=== PATIENT | female | born 1995 | race Caucasian/White ===

== ENCOUNTER 2016-06-22 21:04 | Emergency (ER) | payer MEDICAID ==
[~2016-06-22] VITALS: Ht 157.5 cm; Wt 55.5 kg
[2016-06-22 21:57] VITALS: Ht 157.5 cm; Wt 55.5 kg
--- NOTE | 2016-06-22 23:00 | ERD ---
ER Documentation Chief Complaint Date/Time DATE: 06/22/16 TIME: 22:57 Chief Complaint Flank pain right. pelvic pain and blood in the urine today HPI 21-year-old female presents here in emergency department for complaints of right flank pain radiating to the right pelvic area and hematuria started today. Patient has family history of kidney stones, is worried about this. Patient denies any dysuria. Patient denies any fever or chills. Patient denies any blood in the stool or black stool. Patient described the pain is sharp pain , radiating traveling from the right flank to the right pelvic area, at this time, 4/10 scale, patient denies any trauma on affected area. Patient denies any vaginal discharge or vagina itching. ROS All systems reviewed and are negative except as per history of present illness. Medications Home Meds Reported Medications [none] Unknown Strength No Conflict Check 06/22/16 Allergies Allergies: Coded Allergies: No Known Allergy (Unverified , 06/22/16) PMhx/Soc Medical and Surgical Hx: pt denies Medical Hx History of Surgery: Yes (appendectomy) Hx Alcohol Use: No Hx Substance Use: No Hx Tobacco Use: No Smoking Status: Never smoker FmHx Family History: No coronary disease, No diabetes, No other Physical Exam Vitals Vital Signs Date Time Temp Pulse Resp B/P Pulse Ox O2 Delivery O2 Flow Rate FiO2 06/22/16 21:57 99.3 84 18 115/76 98 Physical Exam GENERAL: The patient is well developed and appropriate for usual state of health, in no apparent distress. CHEST: Clear to auscultation bilaterally. There are no rales, wheezes or rhonchi. HEART: Regular rate and rhythm. No murmurs, clicks, rubs or gallops. No S3 or S4. ABDOMEN: Soft, nontender and nondistended. Good bowel sounds. No rebound or guarding. No gross peritonitis. No gross organomegaly or masses. No Garcia sign or McBurney point tenderness. BACK: No midline or flank tenderness. No CVA tenderness noted. EXTREMITIES: Equal pulses bilaterally. There is no peripheral clubbing, cyanosis or edema. No focal swelling or erythema. Full range of motion. Grossly neurovascularly intact. NEURO: Alert and oriented. Cranial nerves 2-12 intact. Motor strength in all 4 extremities with 5/5 strength. Sensation grossly intact. Normal speech and gait. SKIN: There is no apparent rash or petechia. The skin is warm and dry. HEMATOLOGIC AND LYMPHATIC: There is no evidence of excessive bruising or lymphedema. No gross cervical, axillary, or inguinal lymphadenopathy. Results 24 hrs Laboratory Tests Test 06/22/16 23:19 Bedside Urine Blood 2+ Bedside Urine Glucose (UA) Negative Bedside Urine Ketones (LAB) Negative Bedside Urine Leukocyte Esterase (L Negative Bedside Urine Nitrite (LAB) Negative Bedside Urine Protein (LAB) Negative Bedside Urine pH (LAB) 7.0 PROCEDURE: CT abdomen and pelvis without intravenous contrast. CLINICAL INDICATION: Right flank pain and hematuria. TECHNIQUE: CT of the abdomen/pelvis was performed utilizing axial images with reconstructions in sagittal and coronal planes. The administered radiation dose is CTDI 17 mGy, DLP 945 mGy-cm. COMPARISON: No pertinent prior examinations were submitted for comparison. FINDINGS: Visualized Chest: The visualized lung bases are clear. Abdomen: The liver, spleen, pancreas, gallbladder,and adrenal glands are unremarkable. The kidneys are without hydronephrosis. No definite urinary calculi are seen. There is no evidence of bowel obstruction. Prior appendectomy is noted. No intra-abdominal free air is seen. There is no evidence of intra-abdominal adenopathy or free fluid. Pelvis: There is no evidence of pelvic adenopathy. The uterus and ovaries are without enlargement. The urinary bladder is unremarkable. There is trace pelvic free fluid. Osseous structures: Unremarkable. IMPRESSION: No acute findings. No evidence of obstructive uropathy. RPTAT: HIKT .Bk Schaefer MD, MD Date Time Electronically viewed and signed by .Bk Schaefer MD, MD on 06/23/2016 00:16 .T/ CC: SHAWNA STEWART BURN NURSE Procedures/MDM Medical Decision Making: Patient's flank pain and hematuria nonspecific at this time, possibly renal colic, possibly passed a stone. There is low suspicion for abdominal emergencies at this time. Patients abdominal exam is normal at this time. Patients radiology exam does not show any abdominal emergencies at this time. There is low suspicion for appendicitis, cholecystitis , abdominal aortic aneurysms or peritonitis at this time. There is low suspicion for sepsis. Patient appears well and is hemodynamically stable. Disposition: Home. Condition: Stable Prescription ibuprofen, [place] Pyridium Instructions: Patient is advised to take medications as prescribed. Patient is advised to rest, increase fluid intake and do brat diet for next 1-2 days and progress as tolerated. Patient is advised that if symptoms are worse, severe abdominal pain, uncontrolled vomiting, high fever, severe flank pain, worst signs and symptoms, to return to the emergency department immediately. Otherwise, patient can follow up with primary care doctor in 5-7 days. Departure Diagnosis: Primary Impression: Flank pain Additional Impression: Hematuria Condition: Stable Patient Instructions: Flank Pain, Uncertain Cause, Hematuria Additional Instructions: Patient is advised to take medications as prescribed. Patient is advised to rest , increase fluid intake and do brat diet for next 1-2 days and progress as tolerated. Patient is advised that if symptoms are worse, severe abdominal pain , uncontrolled vomiting, high fever, severe flank pain, worst signs and symptoms , to return to the emergency department immediately. Otherwise, patient can follow up with primary care doctor in 5-7 days. SHAWNA STEWART NP Jun 22, 2016 23:00
[2016-06-22 23:16] LABS: URINE BLOOD (Dip) POC 2+ (NEGATIVE)
--- NOTE | 2016-06-23 00:16 | RADRPT ---
PROCEDURE: CT abdomen and pelvis without intravenous contrast. CLINICAL INDICATION: Right flank pain and hematuria. TECHNIQUE: CT of the abdomen/pelvis was performed utilizing axial images with reconstructions in s agittal and coronal planes. The administered radiation dose is CTDI 17 mGy, DLP 945 mGy-cm. COMPARISON: No pertinent prior examinations were submitted for comparison. FINDINGS: Visualized Chest: The visualized lung bases are clear. Abdomen: The liver, spleen, pancreas, gallbladder,and adrenal glands are unremarkable. The kidneys are without hydronephrosis. No definite urinary calculi are seen. There is no evidence of bowel obstruction. Prior appendectomy is noted. No intra-abdominal free air is seen. There is no evidence of intra-abdominal adenopathy or free fluid. Pelvis: There is no evidence of pelvic adenopathy. The uterus and ovaries are without enlargement. The uri nary bladder is unremarkable. There is trace pelvic free fluid. Osseous structures: Unremarkable. IMPRESSION: No acute findings. No evidence of obstructive uropathy. RPTAT: HIKT .Bk Schaefer MD, Date Time Electronically viewed and signed by .Bk Schaefer MD, on 06/23/2016 00:16 .T/
[2016-06-23] MEDS ORDERED: IBUP-1542 PO (00:35)
[2016-06-23] MEDS ORDERED: HYDR-906 PO (00:35)
[2016-06-23] MEDS ORDERED: PHEN-538 PO (00:35)
== END 2016-06-23 00:43 | disposition home or self-care (01) ==
LOC: FTE 21:04
DX: R10.9 Unspecified abdominal pain (principal); R31.9 Hematuria, unspecified
CPT/HCPCS: 74176; 81003; Z7502